=== PATIENT | male | born 1980 | race Two or more races ===

== ENCOUNTER 2020-04-01 06:16 | Emergency (ER) | payer SELFPAY ==
[~2020-04-01] VITALS: Ht 167.6 cm; Wt 75.3 kg
[~2020-04-01 06:16] MED LIST: MULT-6 PO
--- NOTE | 2020-04-01 06:48 | NUR ---
Pt has no abdominal pain, n/v/headache. No fever noted. Waiting for ERP evaluation. Covid swab by provider.
[2020-04-01] MEDS ORDERED: KETOROLAC 30 MG/1 ML IVPush ONE (07:00)
[2020-04-01] MEDS ORDERED: SODIUM CHLORIDE 0.9% 1,000ML IVBOLUS ONE (07:00)
[2020-04-01] MEDS ORDERED: ONDANSETRON 2MG/ML, 2ML IVPush ONE (07:00)
--- NOTE | 2020-04-01 07:07 | NUR ---
REPORT FROM DANIELLE BENITEZ
[2020-04-01] MEDS ORDERED: KETOROLAC 30 MG/1 ML ONE (07:18)
[2020-04-01] MEDS ORDERED: ONDANSETRON 2MG/ML, 2ML ONE (07:18)
[2020-04-01 07:27] LABS: ALANINE AMINOTRANSFERASE 25 U/L (12-78); ALBUMIN 3.9 g/dL (3.4-5.0); ANION GAP 5 mmol/L (5-15); CALCIUM 9.3 mg/dL (8.5-10.1); CHLORIDE 105 mmol/L (98-107); CREATININE 0.85 mg/dL (0.7-1.3)
[2020-04-01 07:29] LABS: ALKALINE PHOSPHATASE 84 U/L (45-117); BILIRUBIN,TOTAL 0.8 mg/dL (0.2-1.0); TOTAL PROTEIN 7.6 g/dL (6.4-8.2)
[2020-04-01 07:38] LABS: BASOPHILS % (AUTO) 1 % (0-1); EOSINOPHILS % (AUTO) 0 % (1-7); LYMPHOCYTES % (AUTO) 16 % (22-44); MEAN CORPUSCULAR HEMOGLOBIN 32.4 pg (27.5-34.5); MEAN CORPUSCULAR HGB CONC 34.9 g/dL (33.2-36.2); MEAN PLATELET VOLUME 7.4 fL (7.4-10.4); MONOCYTES % (AUTO) 6 % (2-9); NEUTROPHILS % (AUTO) 78 % (42-75); PLATELET COUNT 321 x10^3/uL (130-400); RED CELL DISTRIBUTION WIDTH 13.6 % (9.4-14.8)
[2020-04-01 07:40] LABS: MD NO
[2020-04-01 08:57] VITALS: BP 159/102
--- NOTE | 2020-04-01 09:12 | NUR ---
PT REC'VD DISCHARGE INSTRUCTIONS AND EDUCATION. PT HAD NO FURTHER QUESTIONS. PT AMBULATED TO DC AREA. STEADY GAIT.
== END 2020-04-01 09:16 | disposition home or self-care (01) ==
LOC: ED 09:10
DX: R11.2 Nausea with vomiting, unspecified (principal); Z20.828 Contact with and (suspected) exposure to other viral communicable diseases; B34.9 Viral infection, unspecified; F17.290 Nicotine dependence, other tobacco product, uncomplicated
CPT/HCPCS: 71045; 80053; 85025; 87635; 96374; 96375; 99284; J1885; J2405

== ENCOUNTER 2020-12-10 11:54 | Emergency (ER) | payer SELFPAY ==
[~2020-12-10] VITALS: Ht 167.6 cm; Wt 63.4 kg
[2020-12-10] MEDS ORDERED: DIPH,PERTUSS(ACELL),TET VAC/PF 0.5 ML IM-VACC ONE ×2 (12:00→12:14)
[2020-12-10] MEDS ORDERED: LIDOCAINE-MPF 1%, 5ML INFIL ONE (12:00)
[2020-12-10] MEDS ORDERED: BUPIVACAINE/PF 0.25% INFIL ONE (12:00)
[2020-12-10] MEDS ORDERED: HYDROcodone/APAP 5/325 TABLET ONE (12:09)
[2020-12-10] MEDS ORDERED: LIDOCAINE-MPF 1%, 5ML ONE (12:13)
[2020-12-10] MEDS ORDERED: BUPIVACAINE 0.25% ONE (12:13)
[2020-12-10] MEDS ORDERED: HYDROcodone/APAP 5/325 TABLET PO ONE (12:30)
[2020-12-10] MEDS ORDERED: OXYcodone/APAP 5/325MG TABLET ONE (13:59)
[2020-12-10] MEDS ORDERED: OXYcodone/APAP 5/325MG TABLET PO ONE (14:00)
[2020-12-10 15:16] VITALS: BP 135/78
== END 2020-12-10 15:18 | disposition home or self-care (01) ==
LOC: ED 12:40
DX: S01.111A Laceration without foreign body of right eyelid and periocular area, initial encounter (principal); F17.200 Nicotine dependence, unspecified, uncomplicated; X58.XXXA Exposure to other specified factors, initial encounter; Y93.89 Activity, other specified; Y92.69 Other specified industrial and construction area as the place of occurrence of the external cause; Y99.8 Other external cause status
CPT/HCPCS: 12013; 70450; 90471; 90715